=== PATIENT | male | born 1980 | race Two or more races ===

== ENCOUNTER 2017-03-04 07:22 | Day surgery (SDC) | payer OTHER ==
[2017-03-02 12:13] LABS: Basophils # (auto) 0 uL; Basophils % (auto) 0.3 % (0.0-2.0); Eosinophils # (auto) 0 uL; Eosinophils % (auto) 0.7 % (0.0-7.0); Hematocrit 45.9 % (41.0-53.0); Hemoglobin 15.9 g/dL (13.5-17.5); Lymphocytes # (auto) 2.7 uL; Lymphocytes % (auto) 44.7 % (10.0-50.0); Mean Corpuscular Hemoglobin 30.3 pg (28.0-32.0); Mean Corpuscular Hgb Conc. 34.6 g/dL (32.0-36.0); Mean Corpuscular Volume 87.7 fL (80.0-100.0); Mean Platelet Volume 8.2 fL (6.9-10.8); Monocytes # (auto) 0.7 uL; Monocytes % (auto) 10.9 % (0.0-12.0); Neutrophils # (auto) 2.6 uL; Neutrophils % (auto) 43.4 % (37.0-80.0); Nucleated Red Blood Cells % 0.7 %; Platelet Count (auto) 242 10^3/uL (140-450); Red Cell Distribution Width 12.5 % (11.8-14.3)
[2017-03-02 12:14] LABS: Urine Bilirubin Negative (Negative); Urine Blood Negative /uL (Negative); Urine Color Yellow (Yellow); Urine Glucose Normal (Normal); Urine Ketone Negative (Negative); Urine Nitrite Negative (Negative); Urine RBC None Seen /hpf (0 - 3); Urine Urobilinogen Normal (Negative); Urine pH 6.5 (5.0-8.0)
[2017-03-02 12:40] LABS: INR 1.01 (0.9-1.15); Partial Thromboplastin Time 25.7 sec (22.64-33.71)
[2017-03-02 18:13] LABS: Potassium 4.3 mmol/L (3.5-5.1)
[2017-03-02 18:14] LABS: Albumin 4.5 g/dL (3.4-5.0); Bilirubin, Total 0.4 mg/dL (0.2-1.0); Total Protein 7.9 g/dL (6.4-8.2)
[2017-03-02 18:33] LABS: BUN/Creatinine Ratio 13.1
[~2017-03-04] VITALS: Ht 167.6 cm; Wt 83.9 kg
[2017-03-04] MEDS ORDERED: ceFAZolin 1GM/50ML D5W 50 ML IV ONE (07:49)
[2017-03-04] MEDS ORDERED: SODIUM CHLORIDE LOCK 20 ML ONE (08:38)
[2017-03-04] MEDS ORDERED: ONDANSETRON HCL 4 MG/2 ML VIAL ONE (08:38)
[2017-03-04] MEDS ORDERED: fentaNYL CITRATE 100 MCG/2 ML VL ONE (08:38)
[2017-03-04] MEDS ORDERED: MIDAZOLAM HCL 1MG/1ML-2 ML VIAL ONE (08:38)
[2017-03-04] MEDS ORDERED: PROPOFOL 10 MG/ML 20 ML IV ONE ×2 (08:38→09:12)
[2017-03-04] MEDS ORDERED: METOCLOPRAMIDE HCL 5MG/ml INJ 2ml VIAL IV ONE (09:00)
[2017-03-04] MEDS ORDERED: KETOROLAC TROMETH 30 MG/ML 1ML VIAL IV ONE (09:00)
[2017-03-04] MEDS ORDERED: HYDROmorphone HCL 2 MG/ML VL IV PRN (09:00)
[2017-03-04] MEDS ORDERED: BUPIVACAINE 0.75% INJ 10ML MPV SDV IJ ONE (09:33)
[2017-03-04 10:27] VITALS: BP 124/68
== END 2017-03-04 10:38 | disposition home or self-care (01) ==
LOC: SUR 07:22
PROVIDERS: ATTEND Podiatrist Foot & Ankle Surgery
DX: M25.774 Osteophyte, right foot (principal); M20.5X1 Other deformities of toe(s) (acquired), right foot; M20.21 Hallux rigidus, right foot; M85.871 Other specified disorders of bone density and structure, right ankle and foot
CPT/HCPCS: 28289; 36415; 80053; 81001; 85025; 85610; 85730; C1769; J0690; J2250; J2405; J2704; J3010; J3490; V2790